=== PATIENT | male | born 1950 | race Caucasian/White ===

== ENCOUNTER 2018-08-14 11:53 | Outpatient (REF) | payer OTHER, SELFPAY ==
[2018-08-14 12:35] LABS: HCT 46.7 % (40.0-50.0); HGB 16.2 g/dL (13.5-17.5); Mean Corp. HGB Concentration 34.7 g/dL (32.0-36.0); Mean Corpuscular Hemoglobin 32.9 pg (27.0-33.0); Mean Corpuscular Volume 94.7 fL (80-95); Mean Platelet Volume 11.3 fL (8.0-11.0); Platelet Count 152 x1000/uL (130-400); RBC 4.93 m/cumm (4.50-6.00); RBC Distribution Width 13.6 % (11.8-14.1); White Blood Cell Count 5.49 k/cumm (4.4-10.8)
[2018-08-14 12:43] LABS: BUN 19 mg/dL (7-18); CREATININE 1.22 mg/dL (0.70-1.30); Calcium 9.3 mg/dL (8.5-10.1); Chloride 104 mmol/L (98-107); Estimated GFR 59.43 (mL/min/1.73m2); Glucose 95 mg/dL (70-100); Potassium 4.1 mmol/L (3.5-5.1); Sodium 142 mmol/L (136-145); Uric Acid 6.4 mg/dL (3.5-7.2)
== END 2018-08-14 12:13 ==
LOC: NCHCN 11:53
PROVIDERS: PCP Family Medicine; Visit Provider Family Medicine
DX: I48.0 Paroxysmal atrial fibrillation (principal); E78.5 Hyperlipidemia, unspecified; M10.9 Gout, unspecified
CPT/HCPCS: 80048; 85027; 84550

== ENCOUNTER 2019-08-20 09:01 | Outpatient (REF) | payer OTHER, SELFPAY ==
[2019-08-20 13:29] LABS: HCT 45.4 % (40.0-50.0); HGB 15.7 g/dL (13.5-17.5); Mean Corp. HGB Concentration 34.6 g/dL (32.0-36.0); Mean Corpuscular Hemoglobin 32.6 pg (27.0-33.0); Mean Corpuscular Volume 94.4 fL (80-95); Mean Platelet Volume 11.5 fL (8.0-11.0); Platelet Count 162 x1000/uL (130-400); RBC 4.81 m/cumm (4.50-6.00); RBC Distribution Width 13.5 % (11.8-14.1); White Blood Cell Count 5.47 k/cumm (4.4-10.8)
[2019-08-20 13:48] LABS: Hemoglobin A1C 6.6 % (3.8-5.6)
[2019-08-20 13:53] LABS: ALT 50 U/L (16-63); AST 36 U/L (15-37); Albumin 4.2 g/dL (3.4-5.0); Alkaline Phosphatase 89 U/L (46-116); Anion Gap 10.5 mmol/L (3-11); BUN 16 mg/dL (7-18); Bilirubin, Total 0.8 mg/dL (0.2-1.0); CO2 28.5 mmol/L (21.0-32.0); CREATININE 1.12 mg/dL (0.70-1.30); Calcium 9.1 mg/dL (8.5-10.1); Chloride 103 mmol/L (98-107); Glucose 128 mg/dL (74-106); Potassium 4.3 mmol/L (3.5-5.1); Sodium 142 mmol/L (136-145)
[2019-08-20 14:05] LABS: Uric Acid 5.4 mg/dL (3.5-7.2)
== END 2019-08-20 09:21 ==
LOC: NCHCN 09:01
PROVIDERS: PCP Family Medicine; Visit Provider Family Medicine
DX: R73.03 Prediabetes (principal); M10.9 Gout, unspecified
CPT/HCPCS: 80053; 85027; 83036; 84550

== ENCOUNTER 2020-03-17 11:22 | Outpatient (REF) | payer OTHER, SELFPAY ==
[2020-03-17 15:44] LABS: HCT 43.1 % (40.0-50.0); HGB 14.6 g/dL (13.5-17.5); MCH 32.7 pg (27.0-33.0); MCHC 33.9 % (32.0-36.0); MCV 96.4 fL (80-95); MPV 12.3 fL (8.0-11.0); Platelet Count 127 10^3/uL (130-400); RBC 4.47 10^6/uL (4.36-5.78); RDW-SD 46.4 fL; WBC 4.98 10^3/uL (4.4-10.8)
[2020-03-17 16:56] LABS: TSH (W/Ref FT4) 1.68 uIU/mL (0.36-3.74)
[2020-03-20 12:32] LABS: Testosterone, Free 7.62 ng/dL (3.47-13.0); Testosterone, Total 448 ng/dL (240-950)
== END 2020-03-17 11:42 ==
LOC: NCHCN 11:22
PROVIDERS: PCP Family Medicine; Visit Provider Family Medicine
DX: F32.9 Major depressive disorder, single episode, unspecified (principal)
CPT/HCPCS: 84402; 84403; 85027; 84443

== ENCOUNTER 2020-08-22 10:15 | Outpatient (REF) | payer OTHER, SELFPAY ==
[2020-08-22 14:08] LABS: Anion Gap 6.2 mmol/L (3-11); BUN 17 mg/dL (7-18); CO2 29.8 mmol/L (21.0-32.0); CREATININE 1.2 mg/dL (0.70-1.30); Calculated LDL 71 mg/dL (<100); Chloride 104 mmol/L (98-107); Cholesterol 146 mg/dL (<200); Glucose 112 mg/dL (74-106); HDL Cholesterol 61 mg/dL (40-60); Potassium 4.6 mmol/L (3.5-5.1); Sodium 140 mmol/L (136-145); Triglyceride 73 mg/dL (<150)
[2020-08-22 14:09] LABS: HCT 45.2 % (40.0-50.0); HGB 15.3 g/dL (13.5-17.5); MCH 32.8 pg (27.0-33.0); MCHC 33.8 % (32.0-36.0); Platelet Count 133 10^3/uL (130-400); RBC 4.66 10^6/uL (4.36-5.78); RDW 13.2 % (11.8-14.1); RDW-SD 46.7 fL; WBC 4.58 10^3/uL (4.4-10.8)
[2020-08-22 14:18] LABS: Uric Acid 5.8 mg/dL (3.5-7.2)
[2020-08-22 14:33] LABS: Hemoglobin A1C 5.9 % (<5.7)
== END 2020-08-22 10:16 | disposition home or self-care (01) ==
LOC: NCHCN 10:15
PROVIDERS: PCP Family Medicine; Visit Provider Family Medicine
DX: R73.03 Prediabetes (principal); E78.5 Hyperlipidemia, unspecified; M10.9 Gout, unspecified; I48.0 Paroxysmal atrial fibrillation
CPT/HCPCS: 80048; 80061; 85027; 83036; 84550

== ENCOUNTER → 2021-11-22 00:04 | Outpatient (CLI) | payer OTHER, SELFPAY ==
--- OUTSIDE RECORDS SUMMARY | 2021-11-22 00:06 | XMS_ITS ---
:1950 Author Care Team Providers Name Role Phone VELVET Cam BARNETT Primary Care Provider [phone] [facility] Primary Care Provider [phone] BOBBY BYRNE MD [employer] [phone] [facility] OTHER [phone] Allergies Code Code System Name Reaction Severity Status Onset NKDA ? Medications Name Status Start Date Stop Date ? ? allopurinol 100 mg tablet Active ? Not av ailable Take 1 tablet every day by oral route. apixaban 5 mg tablet Active ? Not availab le Take 1 tablet twice a day by oral route. atorvastatin 40 mg tablet Active ? Not av ailable Take 1 tablet every day by oral route. metoprolol succ 25 mg-hydrochlorothiazide 12.5 mg tablet,ext.rel 24 hr Active ? Not available Take 1 tablet every day by oral route. zolpidem 5 mg tablet Completed ? 03/02/2019 take 1-2 PO at bedtime for the sleep study Problems Name Status Onset Date Source ? Hyperlipidemia Active 07/23/2018 ? Gout Active 07/23/2018 ? Paroxysmal Atrial Fibrillation Active 07/23/2018 ? Family History of Premature Coronary Heart Active 07/23 ? Disease Restless Legs Active 07/24/2018 ? Snoring Active 07/24/2018 ? Obstructive Sleep Apnea Syndrome Active ? ? Procedures None recorded. Results Lab Results None recorded. Past Encounters None recorded. Social History Tobacco Smoking Status Never Smoker Vaccine List None recorded. Plan of Care Reminders Provider Appointments None ? ? recorded. Lab None ? ? recorded. Referral None ? ? recorded. Procedures None ? ? recorded. Surgeries None ? ? recorded. Imaging None ? ? recorded. Vitals 03/14/2020 11:15AM Office 30 Height Weight BMI Blood Pressure 187.96 cm 98.43 kg 27.9 kg/m2 122/64 mm[Hg] 03/02/2019 08:00AM Office 30 Height Weight BMI Blood Pressure 186.69 cm 103.65 kg 29.7 kg/m2 120/80 mm[Hg] 11/04/2018 08:00AM Office 30 Height Weight BMI Blood Pressure 186.69 cm 102.78 kg 29.5 kg/m2 130/78 mm[Hg] 09/02/2018 10:00AM Office 30 Height Weight BMI Blood Pressure 186.69 cm 100.38 kg 28.8 kg/m2 120/76 mm[Hg] 07/24/2018 09:15AM New Patient 47 Height Weight BMI Blood Pressure 186.69 cm 100.52 kg 28.8 kg/m2 130/88 mm[Hg]
--- NOTE | 2021-11-22 08:12 | DI.RAD_ITS ---
Exam(s) XR KNEE RT 3V AP,LAT,COLLEEN EXAM: XR KNEE RT 3V AP,LAT,COLLEEN CLINICAL HISTORY: RT KNEE PAIN M25.561, INCLUDE WEIGHT BEARING. TECHNIQUE: 2D digital imaging was performed. Three views. COMPARISON: No exams were available for comparison FINDINGS: BONES: No acute fracture is present. No bony destructive lesion is seen. Enthesophytes at the patella . JOINTS: The knee is normally aligned. No joint effusion is seen. Joint spaces are well maintained. SOFT TISSUE: Normal. IMPRESSION: Unremarkable radiographs of the right knee. DATA REPOSITORY: RADIATION DOSE DELIVERED:
== END ==
PROVIDERS: PCP Family Medicine; Visit Provider Family Medicine
DX: M25.561 Pain in right knee (principal)
CPT/HCPCS: 73562